=== PATIENT | female | born 1995 | race American Indian/Alaskan Native ===

== ENCOUNTER 2021-02-26 14:30 | Emergency (ER) | payer SELFPAY ==
[2021-02-26] MEDS ORDERED: FAMOTIDINE 20 MG/2 ML INJ IV ONE (14:33)
[2021-02-26] MEDS ORDERED: dexAMETHasone 20 MG/5 ML VIAL IV ONE (14:33)
[2021-02-26] MEDS ORDERED: diphenhydrAMINE 50 MG/ML VIAL IV ONE (14:33)
[2021-02-26 15:13] VITALS: BP 100/66
--- NOTE | 2021-02-26 15:33 | Emergency Department Report ---
HPI - General PUI?: No <TRENTON LOMBARDI - Last Filed: 02/26/21 15:35> - General PUI?: No - HPI HPI: Patient is a 25-year-old female presents emergency room with complaints of an allergic reaction that began just prior to arrival. Patient states that this morning she went to put her shoes on and stepped outside. She states that then her feet began itching. She states then she began itching all over broke out in a diffuse rash. She states that she had some swelling around her mouth. She denies being bit by anything. She denies coming in contact with anything. she denies any known allergies. She denies any new foods, medications, lotions, detergents, antibiotics. She does not take any daily medications. She has never had a reaction like this in the past. She denies any difficulty swallowing, aleksandar rtness of breath, sensation of throat closing. Patient denies any past medical history. She states that she took 1 teaspoon of a Benadryl-like allergy medication prior to being evaluated in the ER. <TYREE BRIONES - Last Filed: 02/26/21 20:36> - General Chief Complaint: Allergic Reaction Time Seen by Provider: 02/26/21 14:33 ED Past Medical Hx - Past Medical History Previous Medical History?: No - Surgical History Past Surgical History?: No - Social History Smoking Status: Never Smoker Substance Use Type: None <TRENTON LOMBARDI - Last Filed: 02/26/21 15:35> - Past Medical History Previous Medical History?: No <TYREE BRIONES - Last Filed: 02/26/21 20:36> - Medications Home Medications: Home Medications Medication Instructions Recorded Confirmed Last Taken Type Cetirizine HCl [ZyrTEC 10mg cap] 10 mg PO DAILY 7 Days #7 capsule 02/26/21 Unknown Rx Famotidine [Pepcid] 40 mg PO QHS 7 Days #7 tablet 02/26/21 Unknown Rx Prednisone [predniSONE 10 mg 10 mg PO .TAPER #1 tab.ds.pk 02/26/21 Unknown Rx (6-Day Pack, 21 Tabs)] ED Review of Systems ROS: Stated complaint: ALLERGIC REACTION Other details as noted in HPI Comment: All other systems reviewed and negative <TRENTON LOMBARDI - Last Filed: 02/26/21 15:35> ROS: Stated complaint: ALLERGIC REACTION Other details as noted in HPI Comment: All other systems reviewed and negative <TYREE BRIONES - Last Filed: 02/26/21 20:36> Physical Exam - Physical Exam Vital Signs: Vital Signs 02/26/21 15:08 Pulse Rate 113 H Respiratory 20 Rate Blood Pressure 100/66 O2 Sat by Pulse 99 Oximetry <TRENTON LOMBARDI - Last Filed: 02/26/21 15:35> - Physical Exam Vital Signs: Vital Signs 02/26/21 15:08 Pulse Rate 113 H Respiratory 20 Rate Blood Pressure 100/66 O2 Sat by Pulse 99 Oximetry General: Non toxic appearing, no acute distress atraumatic, normocephalic normal appearance of the eyes, EOMI, no periorbital edema or ecchymosis moist mucus membranes, mild perioral edema, no tongue edema, uvula is midline, no uvular edema, no trismus, no muffled voice regular heart rate and rhythm, no gallops, no rubs, no murmurs breath sounds are clear bilaterally, no w/r/r, no stridor, no respiratory distress, no excessive muscle use A&O x4, no focal neuro deficit skin is warm, dry, diffuse urticaria <TYREE BRIONES - Last Filed: 02/26/21 20:36> ED Course Vital Signs 02/26/21 15:08 Pulse Rate 113 H Respiratory 20 Rate Blood Pressure 100/66 O2 Sat by Pulse 99 Oximetry - Reevaluation(s) Reevaluation #1: 02/26/21 15:38 on reexam pt playing on cell phone - ambulatory and in nad <TRENTON LOMBARDI - Last Filed: 02/26/21 15:35> Vital Signs 02/26/21 15:08 Pulse Rate 113 H Respiratory 20 Rate Blood Pressure 100/66 O2 Sat by Pulse 99 Oximetry <TYREE BRIONES - Last Filed: 02/26/21 20:36> ED Medical Decision Making - Medical Decision Making Patient is a 25-year-old female presents emergency room with complaints of an allergic reaction that began just prior to arrival. Patient states that this morning she went to put her shoes on and stepped outside. She states that then her feet began itching. She states then she began itching all over broke out in a diffuse rash. She states that she had some swelling around her mouth. She denies being bit by anything. She denies coming in contact with anything. she denies any known allergies. She denies any new foods, medications, lotions, detergents, antibiotics. She does not take any daily medications. She has never had a reaction like this in the past. She denies any difficulty swallowing, shortness of breath, sensation of throat closing. Patient denies any past medical history. She states that she took 1 teaspoon of a Benadryl-like allergy medication prior to being evaluated in the ER. Initial vitals with tachycardia. On reexamination patient's heart rate has improved. Exam she has diffuse urticaria with perioral edema. No tongue edema, oral pharyngeal edema, breath sounds are clear bilaterally, no stridor. Patient given medications while in the emergency department and symptoms have significantly improved. Her urticaria has resolved. mild perioral edema but improved. Patient observed in the emergency department without any further complications. She states that she is feeling much better and ready to go home. She has no longer any itching and she continues to state that she has no sensation of throat closing, difficulty swallowing or difficulty breathing. Given prescription for medications. Advised patient Please take medications as prescribed. Follow-up with a primary care doctor. Discuss with primary care doctor about allergy testing. Return to emergency room immediately for any new or worsening symptoms. <TYREE BRIONES - Last Filed: 02/26/21 20:36> Critical care attestation.: If time is entered above; I have spent that time in minutes in the direct care of this critically ill patient, excluding procedure time. <TRENTON LOMBARDI - Last Filed: 02/26/21 15:35> Critical care attestation.: If time is entered above; I have spent that time in minutes in the direct care of this critically ill patient, excluding procedure time. <TYREE BRIONES - Last Filed: 02/26/21 20:36> ED Disposition Does the pt Need Aspirin: No Time of Disposition: 15:32 <TRENTON LOMBARDI - Last Filed: 02/26/21 15:35> Is pt being admited?: No Does the pt Need Aspirin: No Time of Disposition: 16:25 <TYREE BRIONES - Last Filed: 02/26/21 20:36> Clinical Impression: Allergic reaction Qualifiers: Encounter type: initial encounter Qualified Code(s): T78.40XA - Allergy, unspecified, initial encounter Disposition: HOME / SELF CARE / HOMELESS Condition: Stable Instructions: Allergies, Adult, [id number] Additional Instructions: follow up with derm/pcp as we discussed referrals below meds as ordered today try to identify allergen Please take medications as prescribed. Follow-up with a primary care doctor. Discuss with primary care doctor about allergy testing. Return to emergency room immediately for any new or worsening symptoms. Prescriptions: Famotidine [Pepcid] 40 mg PO QHS 7 Days #7 tablet Prednisone [predniSONE 10 mg (6-Day Pack, 21 Tabs)] 10 mg PO .TAPER #1 tab.ds.pk Cetirizine HCl [ZyrTEC 10mg cap] 10 mg PO DAILY 7 Days #7 capsule Referrals: JOHAN AGUILAR MD [Staff Physician] - 3-5 Days OMER CUBA MD [Staff Physician] - 3-5 Days FRIEDA KAPADIA MD [Staff Physician] - 3-5 Days Print Language: GERMAN
== END 2021-02-26 17:04 | disposition home or self-care (01) ==
LOC: ED 14:30
DX: T78.40XA Allergy, unspecified, initial encounter (principal); X58.XXXA Exposure to other specified factors, initial encounter
CPT/HCPCS: 96374; 96375; 99282; J1100; J1200